=== PATIENT | male | born 1985 | race Hispanic/Latino ===

== ENCOUNTER 2021-01-31 14:08 | Emergency (ER) | payer SELFPAY ==
--- NOTE | 2021-01-31 14:24 | Event Note ---
ED Screening Note Date of service: 01/31/21 Time: 14:22 ED Screening Note: Patient complains of bilateral neck pain and leg numbness/tingling x a few weeks and right-sided facial/head/ear pain with dizziness and disequilibrium x1 day Denies past medical history or head injury States episode of an unsteady gait yesterday Denies chest pain or shortness of breath Heart rate noted to be 118 This initial assessment/diagnostic orders/clinical plan/treatment(s) is/are subject to change based on patients health status, clinical progression and re- assessment by fellow clinical providers in the ED. Further treatment and workup at subsequent clinical providers discretion. Patient/guardian urged not to elope from the ED as their condition may be serious if not clinically assessed and managed. Initial orders include: EKG Labs
[2021-01-31 15:47] LABS: Basophils # (Auto) 0.1 K/mm3 (0.0-0.1); Basophils % (Auto) 0.5 % (0.0-1.8); Eosinophils # (Auto) 0.1 K/mm3 (0.0-0.4); Eosinophils % (Auto) 0.5 % (0.0-4.3); Hematocrit 39.1 % (35.5-45.6); Hemoglobin 12.9 gm/dl (11.8-15.2); Lymphocytes # (Auto) 2.3 K/mm3 (1.2-5.4); Lymphocytes % (Auto) 21.7 % (13.4-35.0); Mean Corpuscular HGB Conc 33 % (32-34); Mean Corpuscular Volume 88 fl (84-94); Monocytes # (Auto) 0.9 K/mm3 (0.0-0.8); Monocytes % (Auto) 8.3 % (0.0-7.3); Platelet Count 248 K/mm3 (140-440); Red Blood Count 4.45 M/mm3 (3.65-5.03); Red Cell Distribution Width 14.7 % (13.2-15.2)
[2021-01-31 15:57] LABS: Alanine Aminotransferase 27 units/L (7-56); Albumin 4.1 g/dL (3.9-5); BUN/Creatinine Ratio 18; Blood Urea Nitrogen 14 mg/dL (9-20); Calcium 9.1 mg/dL (8.4-10.2); Hemolysis Index 4
[2021-01-31 18:13] VITALS: BP 148/86
[2021-01-31] MEDS ORDERED: KETOROLAC 60 MG/2 ML INJ IM ONE (18:29)
--- NOTE | 2021-01-31 18:31 | Emergency Department Report ---
HPI - General Chief Complaint: Neuro Symptoms/Deficit Time Seen by Provider: 01/31/21 18:10 - HPI HPI: Room 1 The patient is a 35-year-old male present with a chief complaint of neck pain. Patient states for 2 years he has had intermittent numbness to some fingers on his left hand. The patient states over the past several months he developed pain in the posterior and lateral regions of the cervical spine. Patient states he occasionally has numbness to the right side of his neck and right ear. Patient denies any preceding trauma. Patient states he has been to the hospital multiple times and has seen his primary physician for the symptoms. The patient states he was given a referral to an orthopedic surgeon but never followed up. Patient states he is scheduled for an MRI of his neck 02/11/2021. The patient states he has been diagnosed with cervical radiculopathy and in the past steroids have helped his pain ED Past Medical Hx - Past Medical History Previous Medical History?: No - Surgical History Past Surgical History?: No - Family History Family history: no significant - Social History Smoking Status: Never Smoker Substance Use Type: None (Denies illicit drug use), Alcohol (Rarely) - Medications Home Medications: Home Medications Medication Instructions Recorded Confirmed Last Taken Type HYDROcodone/APAP 5-325 [[place] 1 - 2 each PO Q6HR PRN #14 tablet 01/31/21 Unknow n Rx 5/325] Prednisone [predniSONE 10 mg 10 mg PO .TAPER #1 tab.ds.pk 01/31/21 Unknown Rx (6-Day Pack, 21 Tabs)] ED Review of Systems ROS: Stated complaint: NUMBNESS NECK/EAR TINGLING ARMS/FINGERS Other details as noted in HPI Constitutional: no symptoms reported Eyes: denies: eye pain ENT: denies: throat pain Respiratory: no symptoms reported Cardiovascular: denies: chest pain Endocrine: no symptoms reported Gastrointestinal: denies: abdominal pain Genitourinary: denies: dysuria Musculoskeletal: arthralgia Neurological: headache, paresthesias Physical Exam - Physical Exam Vital Signs: Vital Signs 01/31/21 01/31/21 14:15 18:11 Temperature 98.4 F 98.2 F Pulse Rate 118 H 75 Respiratory 20 16 Rate Blood Pressure 129/93 Blood Pressure 148/86 [Right] O2 Sat by Pulse 97 100 Oximetry Physical Exam: GENERAL: The patient is well-developed well-nourished male lying on stretcher not appearing to be in acute distress. [] HEENT: Normocephalic. Atraumatic. Extraocular motions are intact. Patient has moist mucous membranes. NECK: Supple. No cervical tenderness to palpation but no axial step-offs CHEST/LUNGS: Clear to auscultation. There is no respiratory distress noted. HEART/CARDIOVASCULAR: Regular. There is no tachycardia. There is no gallop rub or murmur. ABDOMEN: Abdomen is soft, nontender. Patient has normal bowel sounds. There is no abdominal distention. SKIN: There is no rash. There is no edema. There is no diaphoresis. NEURO: The patient is awake, alert, and oriented. The patient is cooperative. The patient has no focal neurologic deficits. The patient has normal speech. Cranial nerves II through XII grossly intact. [employer] equal bilaterally. Patient states he has slightly better sensation to the left upper extremity than the right MUSCULOSKELETAL: There is no evidence of acute injury. ED Course Vital Signs 01/31/21 01/31/21 14:15 18:11 Temperature 98.4 F 98.2 F Pulse Rate 118 H 75 Respiratory 20 16 Rate Blood Pressure 129/93 Blood Pressure 148/86 [Right] O2 Sat by Pulse 97 100 Oximetry ED Medical Decision Making - Lab Data Result diagrams: 01/31/21 15:08 01/31/21 15:08 Laboratory Tests 01/31/21 01/31/21 15:08 15:08 WBC 10.7 RBC 4.45 Hgb 12.9 Hct 39.1 MCV 88 MCH 29 MCHC 33 RDW 14.7 Plt Count 248 Lymph % (Auto) 21.7 Darke % (Auto) 8.3 H Eos % (Auto) 0.5 Baso % (Auto) 0.5 Lymph # (Auto) 2.3 Darke # (Auto) 0.9 H Eos # (Auto) 0.1 Baso # (Auto) 0.1 Seg Neutrophils % 69.0 Seg Neutrophils # 7.4 Sodium 140 Potassium 3.9 Chloride 103.3 Carbon Dioxide 26 Anion Gap 15 BUN 14 Creatinine 0.8 Estimated GFR > 60 BUN/Creatinine Ratio 18 Glucose 110 H Calcium 9.1 Total Bilirubin 0.40 AST 14 ALT 27 Alkaline Phosphatase 89 Troponin T < 0.010 Total Protein 6.9 Albumin 4.1 Albumin/Globulin Ratio 1.5 - Radiology Data Radiology results: report reviewed (CT head, CT cervical spine), image reviewed (CT head, CT cervical spine) [address] [address] Cat Scan Report Signed Patient: ZACK DECKER MR#: [id number] : 1985 Acct:[id number] Age/Sex: 35 / M ADM Date: 01/31/21 Loc: ED Attending Dr: Ordering Physician: AUBRIE ROMERO MD Date of Service: 01/31/21 Procedure(s): CT cervical spine wo con Accession Number(s): [id number] cc: AUBRIE ROMERO MD CT cervical spine wo con INDICATION: Neck pain, intermittent LUE paresthesia. TECHNIQUE: Axial CT images of the cervical spine were obtained. Sagittal and coronal reformatted images were produced. All CT scans at this location are performed using CT dose reduction for ALARA by means of automated exposure control. COMPARISON: None available. FINDINGS: ALIGNMENT: Normal alignment. VERTEBRAE: No fracture. Vertebral body heights are preserved. C1 and C2 are congruent. SPONDYLOSIS: No significant spondylosis. SOFT TISSUES: No significant soft tissue abnormality. ADDITIONAL FINDINGS: No significant additional findings. IMPRESSION: 1. No significant abnormality. Signer Name: Jamari Griffin MD Signed: 01/31/2021 7:14 PM Workstation Name: [id number] Transcribed By: Dictated By: Jamari Griffin MD Electronically Authenticated By: Jamari Griffin MD Signed Date/Time: 01/31/211913 DD/ 11 TD/TT: Print Cancel [address] [address] Cat Scan Report Signed Patient: ZACK DECKER MR#: [id number] : 1985 Acct:[id number] Age/Sex: 35 / M ADM Date: 01/31/21 Loc: ED Attending Dr: Ordering Physician: AUBRIE ROMERO MD Date of Service: 01/31/21 Procedure(s): CT head/brain wo con Accession Number(s): [id number] cc: AUBRIE ROMERO MD CT head/brain wo con INDICATION: Occipital headache. TECHNIQUE: Routine CT head. All CT scans at this location are performed using CT dose reduction for ALARA by means of automated exposure control. COMPARISON: None. FINDINGS: Intracranial: Wells-white matter differentiation is maintained. No intracranial hemorrhage. No extra axial collection. No hydrocephalus. No herniation. Sinuses: Paranasal sinuses and mastoid air cells are essentially clear. Orbits: Globes are intact. [place] um: No acute fracture. IMPRESSION: 1. No acute intracranial abnormality. Signer Name: Jamari Griffin MD Signed: 01/31/2021 7:12 PM Workstation Name: [id number] Transcribed By: CS Dictated By: Jamari Griffin MD Electronically Authenticated By: Jamari Griffin MD Signed Date/Time: 01/31/211911 DD/ 05 TD/TT: Print Cancel - Differential Diagnosis Cervical radiculopathy, pathologic fracture Critical care attestation.: If time is entered above; I have spent that time in minutes in the direct care of this critically ill patient, excluding procedure time. ED Disposition Clinical Impression: Cervical radiculopathy Disposition: TO HOME OR SELFCARE Is pt being admited?: No Does the pt Need Aspirin: No Condition: Stable Instructions: Cervical Radiculopathy Additional Instructions: Return to the emergency department should you develop worsening symptoms, inability to tolerate food or liquids, high fever or any other concerns Prescriptions: HYDROcodone/APAP 5-325 [[place] 5/325] 1 - 2 each PO Q6HR PRN #14 tablet PRN Reason: Pain Prednisone [predniSONE 10 mg (6-Day Pack, 21 Tabs)] 10 mg PO .TAPER #1 tab.ds.pk Referrals: ISIDORO ARRIOLA MD [Staff Physician] - 3-5 Days (Dr. Arriola is an orthopedic surgeon. Please follow-up with him for further evaluation) Time of Disposition: 19:23
--- NOTE | 2021-01-31 19:16 | Cat Scan Report ---
CT head/brain wo con INDICATION: Occipital headache. TECHNIQUE: Routine CT head. All CT scans at this location are performed using CT dose reduction for A TAZ by means of automated exposure control. COMPARISON: None. FINDINGS: Intracranial: Wells-white matter differentiation is maintained. No intracranial hemorrhage. No extra a xial collection. No hydrocephalus. No herniation. Sinuses: Paranasal sinuses and mastoid air cells are essentially clear. Orbits: Globes are intact. Calvarium: No acute fracture. IMPRESSION: 1. No acute intracranial abnormality. Signer Name: Jamari Griffin MD Signed: 01/31/2021 7:12 PM Workstation Name: [id number]
--- NOTE | 2021-01-31 19:18 | Cat Scan Report ---
CT cervical spine wo con INDICATION: Neck pain, intermittent LUE paresthesia. TECHNIQUE: Axial CT images of the cervical spine were obtained. Sagittal and coronal reformatted images were pro duced. All CT scans at this location are performed using CT dose reduction for ALARA by means of auto mated exposure control. COMPARISON: None available. FINDINGS: ALIGNMENT: Normal alignment. VERTEBRAE: No fracture. Vertebral body heights are preserved. C1 and C2 are congruent. SPONDYLOSIS: No significant spondylosis. SOFT TISSUES: No significant soft tissue abnormality. ADDITIONAL FINDINGS: No significant additional findings. IMPRESSION: 1. No significant abnormality. Signer Name: Jamari Griffin MD Signed: 01/31/2021 7:14 PM Workstation Name: [id number]
--- NOTE | 2021-02-02 11:47 | Electrocardiograph Report ---
[facility] Test Date: 2021-01-31 Test Time: 14:37:10 Pat Name: ZACK DECKER Department: Room: Gender: M [employer]: CARSON : 1985 Requested By: ERIN ABRAMS Order Number: [id number] Reading MD: Abdulkadir Cifuentes Measurements Intervals [place] Rate: 118 P: 36 RI: 149 QRS: 10 QRSD: 80 T: 65 QT: 314 QTc: 439 Interpretive Statements Sinus tachycardia No previous ECG available for comparison Electronically Signed On 02-02-2021 11:47:04 EDT by Abdulkadir Cifuentes
== END 2021-01-31 19:55 | disposition home or self-care (01) ==
LOC: ED 14:08
DX: M54.12 Radiculopathy, cervical region (principal); Z79.899 Other long term (current) drug therapy; Z88.6 Allergy status to analgesic agent
CPT/HCPCS: 36415; 70450; 72125; 80053; 84484; 85025; 93005; 96372; 99284; J1885